=== PATIENT | male | born 1935 | race Caucasian/White ===

== ENCOUNTER → 2017-07-31 | Day surgery (SDC) | payer MEDICARE, OTHER ==
[2017-07-31] VITALS (7 sets, daily range): BP systolic 134–149; BP diastolic 50–60; PULSE 61–70; RESP 10–20; O2SAT 95–97
[~2017-07-31] VITALS: Ht 181.6 cm; Wt 102.0 kg
[~2017-07-31] MED LIST: AMIO100T4 PO; Atropine 0.4 mg/mL Inj IVPUSH PRN; Bupivacaine-MPF 0.5% 30 mL Inj INFILTRATE ONE; CARV3.122 PO; CeFAZolin 2 Gm/50 mL D5W Duplex Bag IV ONE; CeFAZolin 2 Gm/50 mL D5W IV Premix IV SCH; DABI150C PO; Dexamethasone 4 mg/mL Inj IVPUSH PRN; EPHEDrine Sulfate 50 mg/mL Inj IVPUSH PRN; EPHEDrine/NS 5 mg/mL 5 mL Syringe ONE; HYDROcodone-APAP 5-325 mg Tablet PO PRN; HYDROmorphone 1 mg/mL Inj IVPUSH PRN; LATA2.5D5 BOTH_EYES; LISI10TA PO; Labetalol 5 mg/mL 20 mL Inj IV PRN; Lactated Ringer's 1,000 ML IV ONE; Lactated Ringer's 1,000 ML IV SCH; Lactated Ringer's 500 ML IV PRN; MetoCLOpramide 5 mg/mL 2 mL Inj IVPUSH PRN; Ondansetron 2 mg/mL 2 mL Inj IVPUSH PRN; Ondansetron 2 mg/mL 2 mL Inj ONE; Phenylephrine 10,000 mCg/mL Inj IVPUSH PRN; Propofol 10,000 mCg/mL 20 mL Inj ONE; TIMO1DRO3 BOTH_EYES; fentaNYL-PF 50 mCg/mL 2 mL Inj IVPUSH PRN; fentaNYL-PF 50 mCg/mL 2 mL Inj ONE; hydrALAZINE 20 mg/mL Inj IVPUSH PRN
--- NOTE | 2017-07-31 11:23 | PCM.HPANE ---
Patient Data Surgeon Admitting Provider: Attending Provider:Davina Mandujano MD Primary Care Physician:Syd Mccollum MD Other Provider:[facility] Reason for Visit Left Hydrocele Ht/WT & BMI Height (Feet): 5 Height (Inches): 11.50 Weight (Kilograms): 102.000 Body Mass Index 30.00 Allergies Coded Allergies: brinzolamide (Verified Allergy, Intermediate, increased eye irritation, ) diazepam (Verified Adverse Reaction, Intermediate, "funny feeling", ) Past Anesthesia History Anesthesia History: Positive for:: Anesthesia Reactions (med given accellerated heart rate), Denies:: Abnormal Airway, Difficult Intubation, Fam Anesthesia Reaction, Fam Malignant Hypertherm, Malignant Hyperthermia Diabetes History Hx Diabetes?: No MRSA MRSA: No Medications Blood Thinner: Pradaxa Hypertension Medication: Yes (Carvedilol) Home Meds Incl Beta James: Yes (correg) Date Beta James Taken: Jul 31, 2017 Time Beta James Taken: 819 Reported Medications Timolol Maleate/Pf (Timoptic 0.25% Ocudose Drop)1 Each Droperette1 Drop BOTH_ EYES DAILY 07/28/17 Lisinopril 10 Mg [id number] Mg PO DAILY 30 Days Ref 0 07/28/17 Latanoprost (Xalatan)2.5 Ml Drops1 Drop BOTH_EYES HS 07/28/17 Dabigatran Etexilate Mesylate (Pradaxa)150 Mg [id number] Mg PO BID 30 Days 07/28/17 Carvedilol 3.125 Mg Tablet3.125 Mg PO BID Ref 0 07/28/17 Amiodarone 100 Mg [id number] Mg PO DAILY Ref 0 07/28/17 Discontinued Reported Medications Lisinopril 2.5 Mg Tablet5 Mg PO q day noon 30 Days Ref 0 04/27/15 Carvedilol (Coreg)6.25 Mg Tablet3.125 Mg PO BIDWM Ref 0 04/27/15 Amiodarone 400 Mg [id number] Mg PO BID 30 Days Ref 0 04/28/14 Latanoprost (Xalatan)2.5 Ml Drops1 Gtt OP HS 04/25/14 Dabigatran Etexilate Mesylate (Pradaxa)150 Mg [id number] Mg PO BID 30 Days 04/25/14 History History of ENT Problems?: Yes HEENT History: Positive for:: Cataracts Glaucoma Denies:: Abnormal Airway Difficult Intubation Dysphagia Hearing Problem Sinus Problem TMJ Denture Type: None Teeth Condition: Within Normal Limits Hx of Heart Problems?: Yes Cardiovascular History: Positive for:: Edema Hypertension Irregular Heartbeat Valvular Heart Disease (mitral regurg) Hx of Respiratory Problem?: No Respiratory History: Positive for:: Pneumonia (As child) Denies:: Asthma COPD Chest Surgery Cough Dyspnea Emphysema Hemoptysis Pulmonary Embolism Tuberculosis Use of C-PAP Machine Use of Inhalers / NEBS Hx Neurologic Problems?: No Hx of GI Problems?: No Hx of Problems?: No Male Hx: Positive for:: Scrotal Mass (R Hydrocele now Lt Hydoecele) Testicular Surgery Denies:: Prostate Problems Skin History: Positive for:: History Skin Disorders? (vilaligo, brusis easily) Denies:: Pressure Ulcers Hx Musculoskeletal Problems?: Yes Musculoskeletal History: Positive for:: Back Injury (SCIATICA) Musculoskeletal Trauma (knees surg) Osteoarthritis Denies:: Degenerative Joint Joint Replacement Rheumatoid Arthritis Hx of Psycho/Social Problems?: No Hx Surgeries?: Yes (Rt hydrocele) Hx Any Other Health Problems?: Yes Other History: Positive for:: Cancer (BCC removed) Hospitalization Denies:: Endocrine Disease Thyroid Disease History Blood Transfusions: Positive for:: Accept Blood Products? Denies:: Blood Transfusions Hx Diabetes: No Hx Alcohol Use: YesAlcoholic Drinks Per Day: wine with dinnerHx Substance Use : No Smoking Status: Former Smoker Have You Smoked inLast 12 mo: No Stop/Bang S-Snoring: Do You Snore Loudly: No T-Tired: feel tired, fatigued: Yes O-Obsered: Observed not breath: No P-Blood Pressure: treated: Yes B- Body Mass Index > 35 kg/m2: No A- Age over 50: Yes N- Neck Large Circumference: No G- Gender Male: Yes BINA Total Score: 4 Risk Assessment Category Category 1A: Patient has history of documented sleep apnea, and HAS NOT received any narcotic, sedative or anesthesia administration during this stay. Category 1B: Patient has history of documented sleep apnea, and HAS received any narcotic , sedative or anesthesia administration during this stay Category 2: Patient has SUSPECTED Obstructive Sleep Apnea, and HAS received any narcotic , sedative or anesthesia administration during this stay. Category 3: Patient has SUSPECTED Obstructive Sleep Apnea and HAS NOT received narcotic, sedative or anesthesia administration during this stay. Category 4: Outpatient in Procedural Areas with known sleep apnea or who screen positive for High Risk via the STOP/BANG questionnaire. Exam Exam Vital Signs Vital Signs Date Time Temp Pulse Resp B/P Pulse Ox O2 Delivery O2 Flow Rate FiO2 07/31/17 08:41 36.2 70 20 149/60 97 Room Air General Appearance: Alert, Oriented X3, Cooperative HEENT/AIRWAY: MP 3 Lungs: Clear to Auscultation Heart: Regular Rate/Rhythm Meds/Labs/Diagnostics Admission Meds Current Medications Lactated Ringer's (Lr) 1,000 ml @ ud STK-MED ONCE IV Last administered on 07/31t 08:40; Start 07/31/17 at 08:40; Stop 07/31/17 at 08:41; Status DC Plan Impression Patient chart reviewed, patient interviewed and anesthestic plan with risks, benefits, and alternatives discussed, and informed consent obtained. ASA Physical Status: ASA3 Severe Disease Anesthetic Plan: GA Bene/Risks/Altern/Consents: Yes HP Complete Prior to Induction: Yes Andrew Cano DO Jul 31, 2017 10:32
--- NOTE | 2017-07-31 13:26 | PCM.ANEP1 ---
Post Anesthesia PACU Phase 1 Assessment Vital Signs Vital Signs Date Time Temp Pulse Resp B/P Pulse Ox O2 Delivery O2 Flow Rate FiO2 07/31/17 13:13 61 18 141/54 95 Room Air 07/31/17 12:48 68 18 136/57 96 Room Air 07/31/17 12:40 68 12 140/50 96 Room Air 07/31/17 12:35 67 12 134/60 96 Room Air 07/31/17 12:30 69 12 135/58 96 Room Air 07/31/17 12:22 37.0 69 10 140/56 97 Room Air 07/31/17 08:41 36.2 70 20 149/60 97 Room Air Anesthetic Administered: GA Level of Alertness: Awake, talking LUU's with Equal Strength: Yes Pain: No Nausea or Vomiting: No CV Function & Hydration Stable: Yes Airway Device: Oxygen Delivery: Simple Mask Lungs: Clear to Auscultation PACU Phase 2 Assessment Complications: No Follow up Care: N/A Patient Instructions Provided: N/A Andrew Cano DO Jul 31, 2017 13:26
--- NOTE | 2017-07-31 22:04 | OP ---
[address] [address] OPERATIVE REPORT PATIENT: LORENA GREENBERG : 1935 MR#: [id number] ADMIT: 07/31/2017 JOB ID: [id number] DATE OF SURGERY: PREOPERATIVE DIAGNOSIS(ES): Left hydrocele versus spermatocelectomy. POSTOPERATIVE DIAGNOSIS(ES): 1. Left hydrocele. 2. Left spermatocele. SURGEON: Davina Mandujano MD. OFFICE MANAGER RECEPTIONIST: None. FINDINGS: 1. Moderate-sized left spermatocele. 2. Left hydrocele. ANESTHESIA: 1. General. 2. 0.5% plain Marcaine. ESTIMATED BLOOD LOSS: Less than 10 mL. DRAINS: None. SPECIMEN: 1. Left spermatocele sac. 2. Left hydrocele sac. COMPLICATIONS: None. CONDITION: Stable. INDICATION FOR PROCEDURE: The patient is an 82-year-old gentleman with the aforementioned findings. He now presents for hydrocelectomy versus spermatocelectomy. DESCRIPTION OF PROCEDURE: After informed consent, the patient was taken to the operating room. A time-out was performed, identifying correct patient, surgical site, procedure. General anesthesia was smoothly induced. He was given intravenous antibiotics prior to start of the procedure. He was placed in supine position. All pressure points identified and appropriately padded. His genitals were then prepped and draped in usual sterile fashion. An approximately 3 cm midline scrotal incision was made with a 15 blade. Bovie electrocautery was used to incise dartos fascia. The layers around the sac were then divided with Bovie electrocautery, as well as blunt dissection. The sac was then delivered through the incision. It was incised down to its very last layer. It was seen to be a spermatocele which was then incised from the epididymis. This was passed off the table as spermatocele sac. It was then apparent that there was a hydrocele present that was also fluid filled and the sac was then divided, cut away, and sent off as hydrocele sac. The testicle was then placed in orthotopic position. Dartos was closed with 3-0 running chromic. The skin was closed with 3-0 running chromic as well. Bacitracin ointment was applied to it. The patient appeared to tolerate the procedure well without apparent complications. I discussed with the patient's the intraoperative findings. He may start his Pradaxa in two days. She voiced understanding. MARIO
--- NOTE | 2017-08-03 15:24 | PATH ---
SURGICAL PATHOLOGY Attending Physician:Davina Mandujano, CASE STATUS: Signed Out PATIENT NAME: LORENA GREENBERG PID: [id number] : 1935 DATE COLLECTED:07/31/2017 00:00 SPECIMEN: 1: Spermatocele 2: Hydrocele CLINICAL HISTORY: LEFT HYDROCELE, EXCISION 1). SPERMATOCELE SACK, LEFT SIDE 2). HYDROCELE SACK, LEFT SIDE FINAL DIAGNOSIS: 1.SPERMATOCELE SACK, LEFT SIDE, EXCISION: - EPITHELIAL-LINED FIBROCONNECTIVE TISSUE, SEE COMMENT. 2.HYDROCELE SACK, LEFT SIDE, EXCISION: - FRAGMENTS OF FIBROMEMBRANOUS TISSUE COMPATIBLE WITH HYDROCELE. ICD N43.3 NOTE: Part 1, designated as spermatocele sack: Histologic sections demonstrate epithelial-lined fibroconnective tissue with no definite evidence of spermatozoa. Clinical correlation is recommended. GROSS DESCRIPTION: The specimens are received in formalin, labeled with the patient's name, and sublabeled as the following: (1) spermatocele sack, left side; (2) hydrocele, left side. (1) The specimen consists in multiple pieces of young-gutierrez semi-translucent membranous tissue (5.5 x 4.2 x 0.8 cm in aggregate). Section code: (1A) tissue, serially sectioned, unit support representative. (2) The specimen consists of a piece of young-gutierrez rubbery semi-translucent membranous tissue (8.2 x 2.0 x 1.0 cm). Section code: (2A) tissue, serially sectioned, unit support representative. 08/01/17 JM MICRO DESCRIPTION: See diagnosis. ICD-9 CODES: CPT CODES: 1: 34439 2: 87481 Electronically Signed Out Alvaro Henry MD [facility] Pathology [facility] [address], [place] [address] Technical component performed at [facility], [address] [place] [address] Ave[address], [place], [address]
== END | disposition home or self-care (01) ==
LOC: SAS 08:06
PROVIDERS: ATTEND Urology
DX: N43.3 Hydrocele, unspecified (principal); N43.41 Spermatocele of epididymis, single; I48.91 Unspecified atrial fibrillation; I10 Essential (primary) hypertension; Z87.891 Personal history of nicotine dependence; Z79.01 Long term (current) use of anticoagulants
CPT/HCPCS: 55040; J0690; J2405; J2704; J3010; J7120